=== PATIENT | male | born 1995 | race Hispanic/Latino ===

== ENCOUNTER 2019-06-10 04:09 | Emergency (ER) | payer SELFPAY ==
[2019-06-10] MEDS ORDERED: TETANUS & DIPHTHERIA TOX,ADULT 0.5 ML VIAL ONE (04:50)
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
[2019-06-10 06:25] VITALS: TEMP 98.5
[2019-06-10 06:28] VITALS: BP 115/66; O2SAT 100
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
== END 2019-06-10 06:20 | disposition home or self-care (01) ==
LOC: ER 04:09
DX: S60.221A Contusion of right hand, initial encounter (principal); V49.40XA Driver injured in collision with unspecified motor vehicles in traffic accident, initial encounter; Z23 Encounter for immunization; Z72.0 Tobacco use; Z88.1 Allergy status to other antibiotic agents
CPT/HCPCS: 71045; 90471; 90714; 99284